=== PATIENT | female | born 1990 | race Caucasian/White ===

== ENCOUNTER 2017-09-06 21:26 | Emergency (ER) | payer OTHER ==
[~2017-09-06] VITALS: Ht 157.5 cm; Wt 54.5 kg
[2017-09-06 21:31] VITALS: BP 118/82; TEMP 97.4
[2017-09-06 22:56] VITALS: PULSE 88
== END 2017-09-06 22:58 | disposition home or self-care (01) ==
LOC: COL.ER 21:26
DX: S61.411A Laceration without foreign body of right hand, initial encounter (principal); W25.XXXA Contact with sharp glass, initial encounter; Y92.009 Unspecified place in unspecified non-institutional (private) residence as the place of occurrence of the external cause

== ENCOUNTER 2017-09-18 23:06 | Emergency (ER) | payer OTHER ==
[2017-09-18 23:14] VITALS: BP 125/60; PULSE 70; TEMP 97.4
== END 2017-09-18 23:15 | disposition home or self-care (01) ==
LOC: COL.ER 23:06
DX: Z48.02 Encounter for removal of sutures (principal)